=== PATIENT | male | born 1970 | race Caucasian/White ===

== ENCOUNTER 2020-02-06 11:09 | Emergency (ER) | payer OTHER, SELFPAY ==
--- NOTE | ~2020-02-06 | XR_ITS ---
EXAMINATION: XR foot LT min 3V EXAM DATE: 02/06/2020 11:28 INDICATION: Initial encounter following injury, with pain of the left foot, fifth toe and metatarsal . TECHNIQUE: Left foot dorsoplantar, lateral and oblique projections obtained and reviewed. There is n o prior study for comparison. FINDINGS: Left metatarsal bones unremarkable. There is acute nondisplaced fracture through the lef t fifth proximal phalangeal shaft at its proximal metaphysis, appears to be extra-articular. Closed, posttraumatic fracture . There is overlying soft tissue swelling. No other acute findings. IMPRESSION: Left fifth proximal phalangeal shaft fracture. Reviewed, dictated and finalized at location B.
--- NOTE | 2020-02-06 11:15 | ED.LOWEXIN ---
HPI - Extremity Injury (Lower) General Chief Complaint: Extremity Injury, Lower Stated Complaint: injured foot/toe History of Present Illness HPI Narrative: This is a 49 year old that stubbed his toe on the couch and his foot is swollen and erythema w bruising noted around the toe. Related Data Allergies Allergy/AdvReac Type Severity Reaction Status Date / Time No Known Allergies Allergy Unknown Unverified 08/31/19 13:21 No Known Allergies Allergy Uncoded 08/31/19 13:21 Review of Systems Review of Systems: Narrative: CONSTITUTIONAL: Denies fever, chills, or sweats. EYES: Denies visual changes, redness, or discharge. ENT: Denies rhinorrhea, congestion, sore throat, or otalgia. CARDIOVASCULAR:Denies chest pain, palpitations, or edema. RESPIRATORY: Denies cough or dyspnea. GASTROINTESTINAL: Denies abdominal pain, nausea, vomiting, or diarrhea. GENITOURINARY: Denies dysuria or hematuria. SKIN:[Denies rash or itching. MUSCULOSKELETAL:Denies back pain,positive for left joint pain, or myalgia. NEUROLOGIC: Denies headache, numbness, or weakness. PSYCHIATRIC:Denies anxiety or depression PMFSH Comments At time as signature, I have reviewed and agree with nursing past medical, social, surgical and family history. Please see nursing chart for further information. There is no relevant family history pertinent to the presenting complaint. Exam Narrative: Exam Narrative: GENERAL:Well-appearing, well-nourished, and in no acute distress. HEAD:Normocephalic, atraumatic. EYES: PERRLA and EOMI. ENT: Nares clear, no rhinorrhea or epistaxis. Mucous membranes moist. NECK: Supple. CHEST: Clear to auscultation. No respiratory distress. HEART: Regular rate and rhythm. No murmur heard. Normal peripheral pulses. ABDOMEN: Soft, nontender, nondistended, normal active bowel sounds. EXTREMITIES: Normal range of motion. 5TH TOE edema erythema and SKIN: Warm, dry, no rash. NEURO: No focal deficits. Alert and oriented x3. Course Vital Signs Vital signs: Vital Signs Temperature 97.7 F 02/06/20 11:16 Pulse Rate 79 02/06/20 11:16 Respiratory Rate 16 02/06/20 11:16 Blood Pressure 138/97 H 02/06/20 11:16 Pulse Oximetry 100 02/06/20 11:16 Temperature 97.7 F 02/06/20 11:16 Pulse Rate 79 02/06/20 11:16 Respiratory Rate 16 02/06/20 11:16 Blood Pressure 138/97 H 02/06/20 11:16 Pulse Oximetry 100 02/06/20 11:16 Discharge Plan Discharge Clinical Impression: Fracture dislocation of toe Qualifiers: Encounter type: initial encounter Fracture type: closed Laterality: left Qualified Code(s): S92.912A - Unspecified fracture of left toe(s), initial encounter for closed fracture Patient Disposition: Home, Self-Care Condition: Stable Instructions: Antibiotic Form, Toe Fracture (ED) Additional Instructions: Avoid weight bearing until the pain subsides. Ice to the area 20-30 minutes 4-6 times a day Elevate above heart Elastic wrap or orthopedic splint as directed for comfort for the next 5-7 days Tylenol for lesser pain Ibuprofen regularly for the next 2-3 days for the inflammation Follow up with your primary care provider if the condition is not improving within 1 week or sooner if the condition worsens with numbness, tingling, decrease sensation with weakness to seek ER. Ortho information given Dr. Vines healthcare administration internship today Prescriptions: New ibuprofen 800 mg tablet 800 mg PO TID PRN (Reason: pain) Qty: 20 RF: 0 Follow-up/Referrals: PHYSICIAN NOT ON STAFF,NONSTAFF [Primary Care Provider] - Stand Alone Forms: Work/School Release IP Time of Disposition: 12:06 Discharge Date/Time: 02/06/20 12:08
[2020-02-06 11:16] VITALS: BP 138/97; PULSE 79; RESP 16; TEMP 36.5; O2SAT 100
== END 2020-02-06 12:08 | disposition home or self-care (01) ==
PROVIDERS: Emergency Provider Nurse Practitioner Family
DX: S92.512A Displaced fracture of proximal phalanx of left lesser toe(s), initial encounter for closed fracture (principal); W22.03XA Walked into furniture, initial encounter
CPT/HCPCS: 73630; 99214; G0463